=== PATIENT | female | born 1960 | race Caucasian/White ===

== ENCOUNTER 2019-04-05 09:45 | Emergency (ER) | payer OTHER ==
[~2019-04-05] VITALS: Ht 160 cm; Wt 68.0 kg
[2019-04-05] MEDS ORDERED: NAPROXEN375 MG PO (10:23)
[2019-04-05] MEDS ORDERED: NORFLEX100MG PO (10:23)
[2019-04-05] MEDS ORDERED: FORTAMET500 MG PO (10:24)
== END 2019-04-05 13:47 | disposition home or self-care (01) ==
LOC: ER 09:45
DX: R10.13 Epigastric pain (principal)